=== PATIENT | male | born 1970 | race African-American/Black ===

== ENCOUNTER 2018-11-07 05:29 | Day surgery (SDC) | payer OTHER ==
[~2018-11-07] VITALS: Ht 175.3 cm; Wt 95.3 kg
[2018-11-07 07:20] LABS: HEMATOCRIT 35.9 % (42.0-54.0); HEMOGLOBIN 12.1 g/dL (13.5-17.5); MCH 27.3 pg (26.0-34.0); MCHC 33.7 g/dL (31.0-37.0); MEAN PLATELET VOLUME 8.6 fL (7.4-10.4); RBC 4.43 10x6/uL (4.20-6.10); RDW 14.4 % (11.5-14.5); WBC 7.7 10x3/uL (4.8-10.8)
[2018-11-07 07:28] LABS: ANION GAP 12.6 mmol/L (8-16); CALCIUM 8.7 mg/dL (8.5-10.1); CARBON DIOXIDE 25.7 mmol/L (21.0-32.0); CREATININE - SERUM 1.2 mg/dL (0.6-1.3); POTASSIUM - SERUM 4.3 mmol/L (3.5-5.1)
[2018-11-07] MEDS ORDERED: NORVASC10 MG PO (07:52)
[2018-11-07 08:02] VITALS: BP 140/87; Ht 175.3 cm; Wt 95.3 kg
--- NOTE | 2018-11-07 14:24 | NUR ---
1325 DR. MARISCAL REPAGED. 1330 NO RETURN CALL. GUARDS READY TO GO. DC INSTS HAVE BEEN GIVEN. RELEASED IN WC. PT. REPORTS UNDERSTANDING OF INSTRUCTIONS. BLOCK IN EFFECT.
== END 2018-11-07 13:30 ==
LOC: D.OPS 05:29
PROVIDERS: ATTEND Orthopaedic Surgery
DX: M24.411 Recurrent dislocation, right shoulder (principal)